=== PATIENT | female | born 1990 | race Caucasian/White ===

== ENCOUNTER 2020-12-11 02:22 | Inpatient (IN) | payer OTHER ==
[~2020-12-11] VITALS: Ht 167.6 cm; Wt 76.0 kg
[2020-12-11] MEDS ORDERED: OXYTOCIN 30U/ 0.9% NaCL 500ML 500 ML ONE ×2 (06:24→21:04)
[2020-12-11] MEDS ORDERED: MISOPROSTOL 200 MCG TABLET ONE (06:24)
[2020-12-11] MEDS ORDERED: NEWBORN KIT ONE (06:24)
[2020-12-11] MEDS ORDERED: LIDOCAINE 1%, 20ML ONE (06:25)
[2020-12-11] MEDS ORDERED: ONDANSETRON 2MG/ML, 2ML IVPush PRN ×2 (06:30→17:00)
[2020-12-11] MEDS ORDERED: OXYTOCIN 30U/ 0.9% NaCL 500ML 500 ML IV ONE ×2 (06:30→17:00)
[2020-12-11] MEDS ORDERED: ALUMINUM/MAG/SIMETHICONE 30 ML UDC PO PRN (06:30)
[2020-12-11] MEDS ORDERED: CALCIUM CARBONATE 500 MG TAB.CHEW PO PRN ×2 (06:30→17:00)
[2020-12-11] MEDS ORDERED: TERBUTALINE 1 MG/ML, 1ML SQ PRN ×2 (06:30→17:00)
[2020-12-11] MEDS ORDERED: D5%-LACTATED RINGERS 1,000 ML IV SCH (06:30)
[2020-12-11] MEDS ORDERED: FENTANYL PF 100 MCG/2ML IVPush PRN (06:30)
[2020-12-11] MEDS ORDERED: TERBUTALINE 1 MG/ML, 1ML IVPush PRN ×2 (06:30→17:00)
[2020-12-11] MEDS ORDERED: FENTANYL PF 100 MCG/2ML IV PRN ×2 (06:30→17:00)
[2020-12-11] MEDS ORDERED: LACTATED RINGERS 1,000 ML IV SCH (06:30)
[2020-12-11 06:42] VITALS: BP 138/90
[2020-12-11 06:48] LABS: MICROSCOPIC INDICATED
[2020-12-11] MEDS ORDERED: PREN1TAB62 PO (06:52)
[2020-12-11 06:57] LABS: CREATININE,URINE RANDOM 70.3 mg/dL
[2020-12-11 07:07] LABS: BASOPHILS % (AUTO) 1 % (0-1); EOSINOPHILS % (AUTO) 4 % (1-7); LYMPHOCYTES % (AUTO) 25 % (22-44); MEAN CORPUSCULAR HEMOGLOBIN 31.7 pg (27.0-34.8); MEAN CORPUSCULAR HGB CONC 33.5 g/dL (32.4-35.8); MEAN PLATELET VOLUME 11.4 fL (7.4-10.4); MONOCYTES % (AUTO) 6 % (2-9); NEUTROPHILS % (AUTO) 65 % (42-75); PLATELET COUNT 196 x10^3/uL (130-400); RED BLOOD COUNT 4.16 x10^6/uL (3.82-5.3); RED CELL DISTRIBUTION WIDTH 13.8 % (9.6-15.2)
[2020-12-11 07:09] LABS: MD NO
[2020-12-11 07:16] LABS: ALANINE AMINOTRANSFERASE 18 U/L (12-78); ALBUMIN 2.7 g/dL (3.4-5.0); ANION GAP 11 mmol/L (5-15); CALCIUM 9.4 mg/dL (8.5-10.1); CHLORIDE 111 mmol/L (98-107); CREATININE 0.73 mg/dL (0.55-1.02)
[2020-12-11 07:18] LABS: ALKALINE PHOSPHATASE 126 U/L (45-117); BILIRUBIN,TOTAL 0.3 mg/dL (0.2-1.0); TOTAL PROTEIN 6.9 g/dL (6.4-8.2)
[2020-12-11 07:20] LABS: BILIRUBIN, DIRECT < 0.1 mg/dL (0.1-0.2)
[2020-12-11] MEDS ORDERED: PENICILLIN GK 5,000,000 UNITS in DEXTROSE 5% 100 ML IVPB ONE ×2 (07:30→21:30)
[2020-12-11] MEDS ORDERED: MISOPROSTOL 25 MCG TABLET VG PRN ×2 (07:30→17:00)
[2020-12-11] MEDS ORDERED: METOCLOPRAMIDE 5 MG/ML, 2ML IV ONE (11:30)
[2020-12-11] MEDS ORDERED: PENICILLIN GK 2,500,000 UNITS in DEXTROSE 5% 100 ML IVPB SCH ×2 (11:30→17:00)
[2020-12-11] MEDS ORDERED: LACTATED RINGERS 1,000 ML IVBOLUS ONE (11:30)
[2020-12-11] MEDS ORDERED: SODIUM CITRATE/CITRIC ACID 30 ML UDC PO ONE (11:30)
[2020-12-11] MEDS ORDERED: SODIUM CITRATE/CITRIC ACID 15 ML UDC ONE (13:50)
[2020-12-11] MEDS ORDERED: METOCLOPRAMIDE 5 MG/ML, 2ML ONE (13:50)
[2020-12-11] MEDS ORDERED: MISOPROSTOL 25 MCG TABLET ONE (16:35)
[2020-12-11] MEDS ORDERED: OXYTOCIN 30U/ 0.9% NaCL 500ML 500 ML IV PRN (17:00)
[2020-12-11] MEDS: D5%-LACTATED RINGERS 1,000 ML IV SCH (17:00)
[2020-12-11] MEDS: LACTATED RINGERS 1,000 ML IV SCH ×2 (17:00→19:30)
[2020-12-12] MEDS: LACTATED RINGERS 1,000 ML IV SCH ×4 (01:00→08:39)
[2020-12-12] MEDS: D5%-LACTATED RINGERS 1,000 ML IV SCH ×2 (01:00→12:28)
[2020-12-12] MEDS: PENICILLIN GK 2,500,000 UNITS in DEXTROSE 5% 100 ML IV SCH ×5 (01:27→13:45)
[2020-12-12 05:43] VITALS: BP 142/92
[2020-12-12] MEDS ORDERED: FENTANYL PF 100 MCG/2ML ONE ×4 (09:21→14:17)
[2020-12-12] MEDS ORDERED: ONDANSETRON 2MG/ML, 2ML ONE (10:47)
[2020-12-12] MEDS: FENTANYL PF 100 MCG/2ML IVPush PRN ×3 (12:10→14:27)
[2020-12-12] MEDS: OXYTOCIN 30U/ 0.9% NaCL 500ML 500 ML IV SCH (16:00)
[2020-12-12] MEDS ORDERED: SIMETHICONE 80 MG CHEW TAB PO PRN (16:00)
[2020-12-12] MEDS ORDERED: ACETAMINOPHEN 325 MG TABLET PO PRN ×2 (16:00)
[2020-12-12] MEDS ORDERED: MISOPROSTOL 200 MCG TABLET PR PRN (16:00)
[2020-12-12] MEDS ORDERED: ONDANSETRON 2MG/ML, 2ML IV PRN (16:00)
[2020-12-12] MEDS ORDERED: OXYcodone/APAP 5/325MG TABLET PO PRN ×2 (16:00)
[2020-12-12] MEDS ORDERED: OXYcodone/APAP 5/325MG TABLET ONE (16:04)
[2020-12-12] MEDS ORDERED: IBUPROFEN 600 MG TABLET ONE (16:05)
[2020-12-12] MEDS ORDERED: OXYTOCIN 30U/ 0.9% NaCL 500ML 500 ML ONE (16:06)
[2020-12-12] MEDS: IBUPROFEN 600 MG TABLET PO PRN (16:09)
[2020-12-12 18:15] VITALS: BP 102/70
[2020-12-12 19:40] VITALS: BP 114/69
[2020-12-13 00:13] LABS: BASOPHILS % (AUTO) 1 % (0-1); EOSINOPHILS % (AUTO) 1 % (1-7); LYMPHOCYTES % (AUTO) 15 % (22-44); MEAN CORPUSCULAR HEMOGLOBIN 31.6 pg (27.0-34.8); MEAN CORPUSCULAR HGB CONC 33.4 g/dL (32.4-35.8); MEAN PLATELET VOLUME 11.5 fL (7.4-10.4); MONOCYTES % (AUTO) 7 % (2-9); NEUTROPHILS % (AUTO) 77 % (42-75); PLATELET COUNT 193 x10^3/uL (130-400); RED CELL DISTRIBUTION WIDTH 13.9 % (9.6-15.2)
[2020-12-13 00:20] VITALS: BP 118/79
[2020-12-13 00:35] LABS: MD NO
[2020-12-13] MEDS: OXYTOCIN 30U/ 0.9% NaCL 500ML 500 ML IV SCH (02:00)
[2020-12-13] MEDS: IBUPROFEN 600 MG TABLET PO PRN (03:53)
[2020-12-13] MEDS: DOCUSATE 100 MG CAPSULE PO PRN ×2 (03:53→20:06)
[2020-12-13 04:01] VITALS: BP 112/67
[2020-12-13 08:31] VITALS: BP 117/81
[2020-12-13] MEDS: PRENATAL VIT/IRON/FA 1 EACH TABLET PO SCH (09:00)
[2020-12-13 13:00] VITALS: BP 116/80
[2020-12-13] MEDS ORDERED: FLU VACC QS2020-21(6MOS UP)/PF 60MCG/0.5 ML SYR IM-VACC ONE (14:00)
[2020-12-13 20:00] VITALS: BP 129/82
[2020-12-14 08:40] VITALS: BP 128/89
[2020-12-14] MEDS: DOCUSATE 100 MG CAPSULE PO PRN (08:50)
[2020-12-14] MEDS: PRENATAL VIT/IRON/FA 1 EACH TABLET PO SCH (09:00)
== END 2020-12-14 10:30 | disposition home or self-care (01) | DRG 807 ==
LOC: LDIP 06:21 → 2NW 12-12 18:00
PROVIDERS: ADMIT Obstetrics & Gynecology; ATTEND Obstetrics & Gynecology
PROC: 10E0XZZ Delivery of Products of Conception, External Approach (ICD-10-PCS; principal; 2020-12-12)
DX: O36.5930 Maternal care for other known or suspected poor fetal growth, third trimester, not applicable or unspecified (principal); Z37.0 Single live birth; O32.2XX0 Maternal care for transverse and oblique lie, not applicable or unspecified; Z20.822 Contact with and (suspected) exposure to COVID-19; O13.4 Gestational [pregnancy-induced] hypertension without significant proteinuria, complicating childbirth; Z88.8 Allergy status to other drugs, medicaments and biological substances; Z3A.37 37 weeks gestation of pregnancy
CPT/HCPCS: 36415; J7121; 76815; 80053; 81001; 82248; 82570; 84156; 84550; 85025; 86592; 86850; 86900; 87635; 90686; G0378; J2405; J2540; J3010; J2590; J2765; J7120